=== PATIENT | male | born 1975 | race African-American/Black ===

== ENCOUNTER → 2020-01-31 | Outpatient (CLI) | payer BC ==
--- NOTE | 2020-01-31 16:30 | RAD ---
Chest radiograph 01/31/2020 12:00 AM INDICATION: Bloody sputum COMPARISON: None available TECHNIQUE: Frontal and lateral views of the chest are provided. FINDINGS: The cardiomediastinal silhouette is within normal limits. There are no pleural effusions. There is no pulmonary vascular congestion. There is no pneumothorax. The lungs are clear. No significant osseous abnormality is identified. IMPRESSION: No acute cardiopulmonary process. Electronically signed by: Elizabeth Escalera MD (01/31/2020 4:26 PM) [id number]
== END ==
LOC: RAD 15:29
PROVIDERS: ATTEND Family Medicine
DX: R04.2 Hemoptysis (principal)
CPT/HCPCS: 71046

== ENCOUNTER → 2021-06-05 | Outpatient (CLI) | payer BC ==
--- NOTE | 2021-06-05 15:30 | KCIC ---
STUDY: MRI of the left knee without contrast INDICATION: Left knee pain. COMPARISON: Radiographs from 05/31/2021 TECHNIQUE: Multiplanar MR imaging of the left knee performed without the use of intravenous or intra- articular contrast. FINDINGS: Menisci: Partially discoid lateral meniscus. There appears to be a tiny free edge tear at the lateral meniscus posterior horn/root junction, images 10 and 11 series 8 and image 20 series 3. The medial m eniscus is intact. Cruciate ligaments: Intact. Collateral ligaments: Thin edema superficial to the tibial collateral ligament. The medial collateral ligament structures are intact. No tear of the lateral collateral ligaments. Unremarkable retinacula and IT band. Musculotendinous: No tendon tear or significant tendinosis. Popliteus muscle edema and thin fluid sig nal between the popliteus and soleus as well as extending up subjacent to the lateral gastrocnemius. Cartilage: Patellofemoral: Intact. Lateral compartment: No focal chondral defect at the weightbearing aspect of the joint. Localized cho ndral defect at the far posterior nonweightbearing lateral femoral condyle with minimal subjacent mar row edema, image 12 series 3. Medial compartment: Partial thickness chondrosis at the weightbearing aspect of the medial femoral co ndyle slightly more so than medial tibial plateau. Bones: No fracture or marrow contusion. Normal TT-TG distance. Miscellaneous: Small knee joint effusion. Minimal popliteal fossa edema. IMPRESSION: 1. Possible tiny free edge tear at the posterior horn/root junction of the lateral meniscus. Partial discoid lateral meniscus. Intact medial meniscus and cruciate ligaments. 2. Mild edema superficial to the tibial collateral ligament could be reactive or indicative of minim al grade 1 sprain. No tear of the collateral ligaments. 3. Partial thickness chondrosis at the weightbearing aspect of the medial compartment and a small ch ondral defect at the far posterior nonweightbearing lateral femoral condyle. 4. Popliteus muscle edema centered around the myotendinous junction could be from mild strain. 5. Small knee joint effusion. 6. No fracture, marrow contusion or loose body. Electronically signed by: DELISA BROOKS MD (06/05/2021 3:27 PM) [id number]
== END ==
LOC: KCIC MRI 12:37
PROVIDERS: ATTEND Physician Assistant
DX: M25.462 Effusion, left knee (principal); M22.42 Chondromalacia patellae, left knee; R60.0 Localized edema; M23.42 Loose body in knee, left knee; M23.92 Unspecified internal derangement of left knee
CPT/HCPCS: 73721